=== PATIENT | female | born 1990 | race Caucasian/White ===

== ENCOUNTER 2016-11-08 20:09 | Inpatient (IN) | payer SELFPAY ==
[2016-11-08] MEDS ORDERED: NORMAL SALINE 1000 ML 2,000 ML IV ONE (20:30)
--- NOTE | 2016-11-08 20:35 | ER Document Report ---
ED Medical Screen (RME) - General Chief Complaint: High Blood Sugar Stated Complaint: SUGAR PROBLEMS Time seen by provider: 20:35 TRAVEL OUTSIDE OF THE [place] IN LAST 30 DAYS: No - Related Data Allergies/Adverse Reactions: amoxicillin [Amoxicillin] Allergy (Verified 09/06/16 17:33) Past Medical History - Social History Chew tobacco use (# tins/day): No Frequency of alcohol use: Occasional Drug Abuse: None - Past Medical History Cardiac Medical History: Reports: Hx Hypertension Denies: Hx Congestive Heart Failure, Hx DVT, Hx Heart Attack, Hx Pulmonary Embolism Pulmonary Medical History: Reports: Hx Asthma, Hx Bronchitis Neurological Medical History: Reports: Hx Migraine. Denies: Hx Seizures Endocrine Medical History: Reports: Hx Diabetes Mellitus Type 1, Hx Diabetes Mellitus Type 2. Denies: Hx Hyperthyroidism, Hx Hypothyroidism GI Medical History: Denies: Hx Cirrhosis, Hx Gastroesophageal Reflux Disease, Hx Hepatitis Musculoskeltal Medical History: Denies Hx Arthritis Psychiatric Medical History: Reports: Hx Bipolar Disorder, Hx Depression Infectious Medical History: Denies: Hx Hepatitis Past Surgical History: Reports: Hx Cholecystectomy, Hx Oral Surgery, Hx Tonsillectomy - Immunizations Immunizations up to date: Yes Hx Diphtheria, Pertussis, Tetanus Vaccination: Yes Physical Exam - Vital signs Vitals: Temp Pulse Resp BP Pulse Ox 98.4 F 124 H 26 H 127/90 H 98 11/08/16 20:31 11/08/16 20:31 11/08/16 20:31 11/08/16 20:31 11/08/16 20:31 Course - Vital Signs Vital signs: Temp Pulse Resp BP Pulse Ox 98.4 F 124 H 26 H 127/90 H 98 11/08/16 20:31 11/08/16 20:31 11/08/16 20:31 11/08/16 20:31 11/08/16 20:31
[2016-11-08] MEDS ORDERED: METOCLOPRAMIDE HCL INJ/PF 10 MG/2 ML SDV IV ONE (20:53)
--- NOTE | 2016-11-08 20:53 | ER Document Report ---
ED General - General Chief Complaint: High Blood Sugar Stated Complaint: SUGAR PROBLEMS Time seen by provider: 20:52 Mode of Arrival: Ambulatory Information source: Patient Notes: This is a 26-year-old female with a history of insulin requiring diabetes, hypothyroidism, hypertension and GERD. The patient presents to the emergency room with 4 days history of nausea, vomiting, dizziness, not tolerating fluids. The patient states she has a history of DKA and is concerned that she might be in DKA again today. TRAVEL OUTSIDE OF THE [place] IN LAST 30 DAYS: No - HPI Onset: Last week Onset/Duration: Gradual Quality of pain: No pain Severity: None Pain Level: Denies Associated symptoms: Diarrhea, Nausea, Vomiting. denies: Chills, Fever Exacerbated by: Denies Relieved by: Denies Similar symptoms previously: Yes Recently seen / treated by doctor: Yes - Related Data Allergies/Adverse Reactions: amoxicillin [Amoxicillin] Allergy (Verified 09/06/16 17:33) Past Medical History - General Information source: Patient - Social History Smoking Status: Current Every Day Smoker Cigarette use (# per day): Yes - half pack per day Chew tobacco use (# tins/day): No Frequency of alcohol use: Occasional Drug Abuse: None Lives with: Family Family History: DM Patient has suicidal ideation: No Patient has homicidal ideation: No - Past Medical History Cardiac Medical History: Reports: Hx Hypertension Denies: Hx Congestive Heart Failure, Hx DVT, Hx Heart Attack, Hx Pulmonary Embolism Pulmonary Medical History: Reports: Hx Asthma, Hx Bronchitis Neurological Medical History: Reports: Hx Migraine. Denies: Hx Seizures Endocrine Medical History: Reports: Hx Diabetes Mellitus Type 1, Hx Diabetes Mellitus Type 2. Denies: Hx Hyperthyroidism, Hx Hypothyroidism GI Medical History: Denies: Hx Cirrhosis, Hx Gastroesophageal Reflux Disease, Hx Hepatitis Musculoskeltal Medical History: Denies Hx Arthritis Psychiatric Medical History: Reports: Hx Bipolar Disorder, Hx Depression Infectious Medical History: Denies: Hx Hepatitis Past Surgical History: Reports: Hx Cholecystectomy, Hx Oral Surgery, Hx Tonsillectomy - Immunizations Immunizations up to date: Yes Hx Diphtheria, Pertussis, Tetanus Vaccination: Yes Review of Systems - Review of Systems Constitutional: Chills, Malaise, Weakness. denies: Fever EENT: No symptoms reported Cardiovascular: No symptoms reported Respiratory: No symptoms reported Gastrointestinal: See HPI Genitourinary: No symptoms reported Female Genitourinary: No symptoms reported Musculoskeletal: No symptoms reported Skin: No symptoms reported Hematologic/Lymphatic: No symptoms reported Neurological/Psychological: No symptoms reported Physical Exam - Vital signs Vitals: Temp Pulse Resp BP Pulse Ox 98.4 F 124 H 26 H 127/90 H 98 11/08/16 20:31 11/08/16 20:31 11/08/16 20:31 11/08/16 20:31 11/08/16 20:31 Notes: Physical exam: GENERAL: 26-year-old female, alert and oriented 3, appears dehydrated. HEAD: Atraumatic, normocephalic. EYES: Pupils equal round and reactive to light, extraocular movements intact, sclera anicteric, conjunctiva are normal. ENT: TMs normal, nares patent, oropharynx clear without exudates. Dry mucous membranes. NECK: Normal range of motion, supple without lymphadenopathy or JVD. LUNGS: Breath sounds clear to auscultation bilaterally and equal. No wheezes rales or rhonchi. HEART: Regular rate and rhythm without murmurs, rubs or gallops. ABDOMEN: Soft, nontender, hypoactive bowel sounds. No guarding, no rebound. No masses appreciated. EXTREMITIES: Normal range of motion, no pitting or edema. No clubbing or cyanosis. NEUROLOGICAL: Cranial nerves II through XII grossly intact. Normal speech, normal gait. PSYCH: Normal mood, normal affect. SKIN: Warm, Dry, normal turgor, no rashes or lesions noted. Course - Re-evaluation Re-evalutation: 11/09/16 01:53 Patient in DKA: IV insulin, IV fluids, IV Zosyn - Vital Signs Vital signs: Temp Pulse Resp BP Pulse Ox 98.4 F 124 H 26 H 127/90 H 98 11/08/16 20:31 11/08/16 20:31 11/08/16 20:31 11/08/16 20:31 11/08/16 20:31 - Laboratory Result Diagrams: 11/08/16 22:21 11/08/16 22:21 Laboratory results interpreted by me: 11/08/16 11/08/16 11/08/16 22:21 22:21 22:21 WBC 16.5 H RBC 5.62 H Hgb 16.2 H Hct 51.0 H MCHC 31.7 L RDW 14.8 H Seg Neutrophils % 86.5 H Lymphocytes % 7.7 L Absolute Neutrophils 14.3 H VBG pH 7.16 L* VBG pCO2 26.0 L VBG HCO3 9.1 L Potassium 5.2 H Carbon Dioxide 8 L* Anion Gap 30 H Glucose 485 H* POC Glucose Calcium 10.4 H Total Bilirubin 1.4 H Alkaline Phosphatase 148 H Albumin 5.2 H 11/09/16 00:48 WBC RBC Hgb Hct MCHC RDW Seg Neutrophils % Lymphocytes % Absolute Neutrophils VBG pH VBG pCO2 VBG HCO3 Potassium Carbon Dioxide Anion Gap Glucose POC Glucose 430 H* Calcium Total Bilirubin Alkaline Phosphatase Albumin - Diagnostic Test Radiology reviewed: Image reviewed, Reports reviewed - Chest x-ray shows no infiltrates Critical Care Note - Critical Care Note Total time excluding time spent on procedures (mins): 75 Discharge - Discharge Clinical Impression: DKA Condition: Serious Disposition: ADMITTED INPATIENT Admitting Provider: Hospitalist - Dr. Sutherland Unit Admitted: [facility]
[2016-11-08] MEDS ORDERED: DIPHENHYDRAMINE HCL 50 MG/ML VIAL IV ONE (20:58)
[2016-11-08] MEDS ORDERED: MAG HYDROX/AL HYDROX/SIMETH SUSP 30 ML UDCUP PO ONE (20:59)
[2016-11-08] MEDS ORDERED: LIDOCAINE 2% VISCOUS SOLN 20 ML UDCUP PO ONE (20:59)
[2016-11-08] MEDS ORDERED: FAMOTIDINE INJ/PF 20 MG/2 ML SDV IV ONE (20:59)
[2016-11-08 22:36] LABS: ABSOLUTE BASOPHILS # (AUTO) 0.1 10^3/uL (0.0-0.2); ABSOLUTE EOSINOPHILS # (AUTO) 0.1 10^3/uL (0.0-0.6); ABSOLUTE LYMPHOCYTES (AUTO) 1.3 10^3/uL (0.5-4.7); ABSOLUTE MONOCYTES (AUTO) 0.7 10^3/uL (0.1-1.4); ABSOLUTE NEUT (AUTO) 14.3 10^3/uL (1.7-8.2); BASOPHILS % (AUTO) 0.7 % (0-2); EOSINOPHILS % (AUTO) 0.6 % (0-6); HEMOGLOBIN 16.2 g/dL (12.0-15.5); HGB HCT DIFFERENCE -2.4; LYMPHOCYTES % (AUTO) 7.7 % (13-45); MEAN CORPUSCULAR HEMOGLOBIN 28.8 pg (27.0-33.4); MEAN CORPUSCULAR HGB CONC 31.7 g/dL (32.0-36.0); MEAN CORPUSCULAR VOLUME 91 fl (80-97); MONOCYTES % (AUTO) 4.5 % (3-13); RED BLOOD COUNT 5.62 10^6/uL (3.72-5.28); RED CELL DISTRIBUTION WIDTH 14.8 % (11.5-14.0); SEGMENTED NEUTROPHILS % (AUTO) 86.5 % (42-78); WHITE BLOOD COUNT 16.5 10^3/uL (4.0-10.5)
[2016-11-08 22:39] LABS: VENOUS BLOOD BASE EXCESS -17.7 mmol/L; VENOUS BLOOD HCO3 9.1 mmol/L (20-32)
[2016-11-08 22:43] LABS: VENOUS BLOOD PH 7.16 (7.30-7.42)
[2016-11-08 22:57] LABS: ALANINE AMINOTRANSFERASE 30 U/L (9-52); ALBUMIN 5.2 g/dL (3.5-5.0); ALKALINE PHOSPHATASE 148 U/L (38-126); ASPARTATE AMINO TRANSFERASE 16 U/L (14-36); BILIRUBIN,TOTAL 1.4 mg/dL (0.2-1.3); BLOOD UREA NITROGEN 11 mg/dL (7-20); CALCIUM 10.4 mg/dL (8.4-10.2); CHLORIDE 99 mmol/L (98-107); CREATININE RESULT 0.86 mg/dL (0.52-1.25); POTASSIUM 5.2 mmol/L (3.6-5.0); SODIUM 137.2 mmol/L (137-145); TOTAL PROTEIN 8.1 g/dL (6.3-8.2)
[2016-11-08 23:12] LABS: GLUCOSE 485 mg/dL (75-110)
[2016-11-08 23:13] LABS: CARBON DIOXIDE 8 mmol/L (22-30)
[2016-11-08 23:21] LABS: ANION GAP 30 (5-19)
[2016-11-08] MEDS ORDERED: DEXTROSE 40% GEL 15 GM TUBE PO PRN ×2 (23:43)
[2016-11-08] MEDS ORDERED: DEXTROSE 50%-WATER 25 GM/50 ML DISP.SYRIN IV PRN ×2 (23:43)
[2016-11-08] MEDS ORDERED: NORMAL SALINE 100 ML with INSULIN REGULAR, HUMAN 100 UNIT IV PRN ×2 (23:43)
[2016-11-08] MEDS ORDERED: GLUCAGON,HUMAN RECOMB 1 MG INJ IM PRN (23:43)
[2016-11-09] MEDS ORDERED: INSULIN REG, HUMAN 100 UNIT/ML 3 ML VIAL (PYX) ONE (00:34)
[2016-11-09] MEDS ORDERED: ONDANSETRON HCL INJ/PF 4 MG/2 ML SDV ONE (01:16)
[2016-11-09] MEDS ORDERED: ONDANSETRON HCL INJ/PF 4 MG/2 ML SDV IV ONE (01:30)
[2016-11-09] MEDS ORDERED: DEXTROSE 40% GEL 15 GM TUBE PO PRN ×2 (01:50)
[2016-11-09] MEDS ORDERED: NORMAL SALINE 100 ML with INSULIN REGULAR, HUMAN 100 UNIT IV PRN ×2 (01:50)
[2016-11-09] MEDS ORDERED: MAGNESIUM HYDROXIDE SUSP 30 ML UDCUP PO PRN (01:50)
[2016-11-09] MEDS ORDERED: ACETAMINOPHEN 325 MG TABLET PO PRN (01:50)
[2016-11-09] MEDS ORDERED: DEXTROSE 50%-WATER 25 GM/50 ML DISP.SYRIN IV PRN ×2 (01:50)
[2016-11-09] MEDS ORDERED: GLUCAGON,HUMAN RECOMB 1 MG INJ IM PRN (01:50)
[2016-11-09] MEDS ORDERED: ENALAPRILAT DIHYDRATE INJ/PF 1.25 MG/1 ML SDV IV PRN (02:37)
--- NOTE | 2016-11-09 02:46 | PDOC H&P ---
History of Present Illness Admission Date/PCP: 11/09/16 01:50 Patient complains of: Abdominal, pain nausea and hyperglycemia History of Present Illness: NED LOZANO is a 26 year old female with a past medical history of morbid obesity, noncompliance, tobacco, bipolar depression, insulin-dependent diabetes and recurrent DKA. He states she been her usual state of health until approximately 5 days ago noting uncontrolled blood sugars in the 600 range though denies taking action on these results. She otherwise denies acute illness noncompliance with medication or lifestyle. In the emergency room she complains of abdominal pain nausea and is found to have hyperglycemia severe diabetic ketoacidosis with a bicarbonate of 8 and an anion gap of 30 she started on insulin IV fluids and referred to the hospitalist for admission. Past Medical History Cardiac Medical History: Reports: Hypertension Denies: Congestive Heart Failure, DVT, Myocardial Infarction, Pulmonary Embolism Pulmonary Medical History: Reports: Asthma, Bronchitis Neurological Medical History: Reports: Migraine Denies: Seizures Endocrine Medical History: Reports: Diabetes Mellitus Type 1 Denies: Hyperthyroidism, Hypothyroidism GI Medical History: Denies: Cirrhosis, Gastroesophageal Reflux Disease, Hepatitis Musculoskeltal Medical History: Denies: Arthritis Psychiatric Medical History: Reports: Bipolar Disorder, Depression, Tobacco Dependency Past Surgical History Past Surgical History: Reports: Cholecystectomy, Tonsillectomy Social History Information Source: Patient Lives with: Family Smoking Status: Current Every Day Smoker Frequency of Alcohol Use: None Hx Recreational Drug Use: Yes Drugs: None, Other Hx Prescription Drug Abuse: Yes - Advance Directive Resuscitation Status: Full Code Family History Family History: DM Parental Family History Reviewed: Yes Children Family History Reviewed: Yes Sibling(s) Family History Reviewed.: Yes Medication/Allergy Home Medications: Gabapentin 300 mg PO BID 09/06/15 Insulin Glargine,Hum.rec.anlog [Lantus Insulin 100 Unit/mL] 40 unit SUBCUT Q12 09/06/15 Ondansetron [Zofran Odt 4 mg Tablet] 1 - 2 tab PO Q4HP PRN #10 tab.rapdis Tramadol HCl [Ultram] 50 mg PO Q8HP PRN #10 tablet 09/07/15 Pregabalin [Lyrica] 200 mg PO BID 12/11/15 Citalopram Hydrobromide [Celexa 40 mg Tablet] 1 tab PO DAILY 06/17/16 Hydroxyzine Pamoate [Vistaril 50 mg Capsule] 50 mg PO Q6HP PRN #30 capsule 06/17 Insulin Glargine,Hum.rec.anlog [Lantus Solostar] 50 unit SQ QHS 30 Days Insulin Lispro [Humalog] 15 unit SQ AC 30 Days 09/09/16 Levothyroxine Sodium [Synthroid 0.05 mg Tablet] 0.05 mg PO DAILY #30 tablet 08/15 Allergies/Adverse Reactions: amoxicillin [Amoxicillin] Allergy (Verified 09/06/16 17:33) Review of Systems Constitutional: PRESENT: fatigue. ABSENT: chills, fever(s), headache(s), night sweats, weakness, weight gain, weight loss Eyes: ABSENT: visual disturbances Ears: ABSENT: hearing changes Cardiovascular: ABSENT: chest pain, dyspnea on exertion, edema, orthropnea, palpitations Respiratory: ABSENT: cough, hemoptysis Gastrointestinal: PRESENT: bloating, constipation. ABSENT: abdominal pain, diarrhea, hematemesis, hematochezia, nausea, vomiting Genitourinary: ABSENT: dysuria, hematuria Musculoskeletal: ABSENT: joint swelling Integumentary: ABSENT: rash, wounds Neurological: ABSENT: abnormal gait, abnormal speech, confusion, dizziness, focal weakness, syncope Psychiatric: ABSENT: anxiety, depression, homidical ideation, suicidal ideation Endocrine: PRESENT: polydipsia, polyphagia, polyuria. ABSENT: cold intolerance , heat intolerance Hematologic/Lymphatic: ABSENT: easy bleeding, easy bruising Physical Exam Vital Signs: Temp Pulse Resp BP Pulse Ox 97.7 F 124 H 27 H 154/91 H 100 11/09/16 02:05 11/08/16 20:31 11/09/16 02:01 11/09/16 02:00 11/09/16 02:01 General appearance: PRESENT: mild distress, morbidly obese Head exam: PRESENT: atraumatic, normocephalic Eye exam: PRESENT: conjunctiva pink, EOMI, PERRLA. ABSENT: scleral icterus Ear exam: PRESENT: normal external ear exam Mouth exam: PRESENT: dry mucosa, neck supple. ABSENT: laceration, moist Teeth exam: PRESENT: dental caries. ABSENT: dental tenderness Neck exam: ABSENT: carotid bruit, JVD, lymphadenopathy, thyromegaly Respiratory exam: PRESENT: clear to auscultation hossein. ABSENT: rales, rhonchi, wheezes Cardiovascular exam: PRESENT: RRR. ABSENT: diastolic murmur, rubs, systolic murmur Pulses: PRESENT: normal dorsalis pedis pul Vascular exam: PRESENT: normal capillary refill GI/Abdominal exam: PRESENT: normal bowel sounds, soft. ABSENT: distended, guarding, mass, organolmegaly, rebound, tenderness Extremities exam: PRESENT: full ROM. ABSENT: calf tenderness, clubbing, pedal edema Neurological exam: PRESENT: alert, awake, oriented to person, oriented to place , oriented to time, oriented to situation, CN II-XII grossly intact. ABSENT: motor sensory deficit Psychiatric exam: PRESENT: depressed, flat affect, unusual affect Skin exam: PRESENT: dry, intact, warm. ABSENT: cyanosis, rash Results Impressions: Chest X-Ray 11/08/16 23:45 IMPRESSION: NO ACUTE RADIOGRAPHIC FINDING IN THE CHEST. Assessment & Plan - Diagnosis (1) DKA (diabetic ketoacidoses) Qualifiers: Diabetes mellitus type: type 1 Diabetes mellitus complication detail: without coma Qualified Code(s): E10.10 - Type 1 diabetes mellitus with ketoacidosis without coma Is this a current diagnosis for this admission?: YesPlan: Diabetic ketoacidosis patient has had some degree of polyuria polydipsia with nausea and uncontrolled hyperglycemia with supporting labs. Patient will receive IV fluids IV insulin serial chemistries every 6 hours for evaluation for electrolyte repletion. Continued evaluation for underlying cause if not found Patient will require diabetic education and consideration of mental health evaluation. (2) Chronic pain Is this a current diagnosis for this admission?: YesPlan: Minimizer wean off narcotics (3) Tobacco abuse Is this a current diagnosis for this admission?: YesPlan: Tobacco Dependence patient received tobacco cessation counseling and offered nicotine replacement options (4) Depression Qualifiers: Depression Type: unspecified Qualified Code(s): F32.9 - Major depressive disorder, single episode, unspecified Is this a current diagnosis for this admission?: YesPlan: Continue outpatient regiment with outpatient until health follow-up - Time Time Spent: 50 to 70 Minutes
[2016-11-09 03:08] LABS: BLOOD UREA NITROGEN 11 mg/dL (7-20); CALCIUM 8.7 mg/dL (8.4-10.2); CREATININE RESULT 0.85 mg/dL (0.52-1.25); GLUCOSE 338 mg/dL (75-110)
[2016-11-09 03:09] LABS: CHLORIDE 106 mmol/L (98-107)
[2016-11-09 03:20] LABS: SODIUM 140.8 mmol/L (137-145)
[2016-11-09 03:31] LABS: ANION GAP 28 (5-19)
[2016-11-09 03:34] LABS: CARBON DIOXIDE 7 mmol/L (22-30)
[2016-11-09] MEDS: HEPARIN SOD (PORCINE) 5,000 UNIT/ML 1 ML SYRINGE SUBCUT SCH ×3 (05:01→21:46)
[2016-11-09] MEDS: ONDANSETRON HCL INJ/PF 4 MG/2 ML SDV IV SCH ×3 (05:05→17:31)
[2016-11-09 06:35] LABS: BLOOD UREA NITROGEN 7 mg/dL (7-20); CALCIUM 8.5 mg/dL (8.4-10.2); CHLORIDE 109 mmol/L (98-107); CREATININE RESULT 0.76 mg/dL (0.52-1.25); GLUCOSE 113 mg/dL (75-110); POTASSIUM 4.7 mmol/L (3.6-5.0); SODIUM 138.1 mmol/L (137-145)
[2016-11-09] MEDS ORDERED: POTASSI CL 20 MEQ/D5-1/2NS 1L 1,000 ML IV ONE (06:45)
[2016-11-09] MEDS: POTASSI CL 20 MEQ/D5-1/2NS 1L 1,000 ML IV PRN ×3 (06:49→19:43)
[2016-11-09 06:59] LABS: CARBON DIOXIDE < 5 mmol/L (22-30)
[2016-11-09] MEDS: DOCUSATE SODIUM 100 MG CAPSULE PO SCH ×2 (09:04→17:32)
[2016-11-09] MEDS: CITALOPRAM HYDROBROMIDE 20 MG TABLET PO SCH (09:05)
[2016-11-09] MEDS: LEVOTHYROXINE SODIUM 0.05 MG TABLET PO SCH (09:05)
[2016-11-09] MEDS ORDERED: (PENDING PHARMACY ID) (Citalopram Hydrobromide [Celexa 40 Mg Tablet] 1 TAB) PO SCH (10:00)
--- NOTE | 2016-11-09 10:18 | PDOC PROGRESS REPORT ---
Subjective Progress Note for:: 11/09/16 Subjective:: Patient states she still feels poorly. She is still having some nausea and has no appetite. Patient denies fever, chills, headache, new focal weakness, chest pain, shortness of breath, abdominal pain, diarrhea, constipation. Physical Exam Vital Signs: Temp Pulse Resp BP Pulse Ox 98.2 F 105 H 16 117/65 100 11/09/16 07:11 11/09/16 07:11 11/09/16 07:11 11/09/16 07:11 11/09/16 07:11 Intake & Output 11/08/16 11/09/16 11/10/16 06:59 06:59 06:59 Intake Total 37 Output Total 600 Balance -563 Weight 110 kg GENERAL: No acute distress, ill appearing HEENT: Conjunctiva clear, nonicteric, moist mucous membranes, no JVD, midline trachea RESPIRATORY: Clear to auscultation bilaterally, no wheezes, no rhonchi CARDIAC: Regular rate and rhythm, no murmurs/gallops/rubs ABDOMEN: Soft, nondistended, nontender, positive bowel sounds, no rebound, no guarding EXTREMETIES: No edema, cyanosis, clubbing NEUROLOGIC: Alert, oriented to person/place/time, CN's grossly intact, no focal deficits SKIN: No rash, wounds PSYCH: Normal mood, normal affect Results Laboratory Results: 11/09/16 11/09/16 02:33 06:00 Sodium 140.8 138.1 Potassium 5.0 4.7 Chloride 106 109 H Carbon Dioxide 7 L* < 5 L* Anion Gap 28 H MODELING DIRECTOR BUN 11 7 Creatinine 0.85 0.76 Est GFR ( Amer) > 60 > 60 Est GFR (Non-Af Amer) > 60 > 60 Glucose 338 H 113 H Calcium 8.7 8.5 Impressions: Chest X-Ray 11/08/16 23:45 IMPRESSION: NO ACUTE RADIOGRAPHIC FINDING IN THE CHEST. Assessment & Plan - Diagnosis (1) DKA (diabetic ketoacidoses) Qualifiers: Diabetes mellitus type: type 1 Diabetes mellitus complication detail: without coma Qualified Code(s): E10.10 - Type 1 diabetes mellitus with ketoacidosis without coma Is this a current diagnosis for this admission?: YesPlan: Continue insulin drip, IV fluids, nothing by mouth status. Continue every hour Accu-Cheks and every 4 hour BMP. (2) Hypothyroid Is this a current diagnosis for this admission?: YesPlan: Continue Synthroid. (3) Bipolar disorder Qualifiers: Active/Remission status: remission status unspecified Qualified Code (s): F31.9 - Bipolar disorder, unspecified Is this a current diagnosis for this admission?: YesPlan: Continue Lyrica, Celexa. (4) Tobacco abuse Is this a current diagnosis for this admission?: Yes - Time Time Spent with patient: 35 or more minutes Anticipated discharge: Home Within: within 72 hours
[2016-11-09 11:28] LABS: ANION GAP 17 (5-19); BLOOD UREA NITROGEN 5 mg/dL (7-20); CALCIUM 9.2 mg/dL (8.4-10.2); CHLORIDE 111 mmol/L (98-107); CREATININE RESULT 0.62 mg/dL (0.52-1.25); GLUCOSE 117 mg/dL (75-110); POTASSIUM 4.5 mmol/L (3.6-5.0); SODIUM 138.3 mmol/L (137-145)
[2016-11-09 11:41] LABS: CARBON DIOXIDE 10 mmol/L (22-30)
[2016-11-09 15:21] LABS: ANION GAP 14 (5-19); BLOOD UREA NITROGEN 5 mg/dL (7-20); CALCIUM 9.1 mg/dL (8.4-10.2); CARBON DIOXIDE 12 mmol/L (22-30); CHLORIDE 111 mmol/L (98-107); CREATININE RESULT 0.54 mg/dL (0.52-1.25); GLUCOSE 91 mg/dL (75-110); POTASSIUM 4.4 mmol/L (3.6-5.0); SODIUM 137.4 mmol/L (137-145)
[2016-11-09] MEDS: PREGABALIN 100 MG CAPSULE PO SCH (17:31)
[2016-11-09] MEDS ORDERED: (PENDING PHARMACY ID) (Pregabalin [Lyrica] 200 MG) PO SCH (18:00)
[2016-11-09 18:41] LABS: ANION GAP 14 (5-19); BLOOD UREA NITROGEN 5 mg/dL (7-20); CARBON DIOXIDE 12 mmol/L (22-30); CHLORIDE 111 mmol/L (98-107); CREATININE RESULT 0.53 mg/dL (0.52-1.25); GLUCOSE 135 mg/dL (75-110); POTASSIUM 4.2 mmol/L (3.6-5.0); SODIUM 136.8 mmol/L (137-145)
[2016-11-09 22:53] LABS: ANION GAP 15 (5-19); BLOOD UREA NITROGEN 4 mg/dL (7-20); CALCIUM 8.9 mg/dL (8.4-10.2); CARBON DIOXIDE 13 mmol/L (22-30); CHLORIDE 110 mmol/L (98-107); CREATININE RESULT 0.55 mg/dL (0.52-1.25); GLUCOSE 222 mg/dL (75-110); POTASSIUM 3.7 mmol/L (3.6-5.0); SODIUM 137.9 mmol/L (137-145)
[2016-11-10] MEDS: ONDANSETRON HCL INJ/PF 4 MG/2 ML SDV IV SCH ×4 (00:06→17:28)
[2016-11-10] MEDS ORDERED: POTASSI CL 20 MEQ/50 ML RIDER 20 MEQ/50 ML RTUPB IV ONE (00:26)
[2016-11-10] MEDS ORDERED: RINGERS SOLUTION,LACTATED 1,000 ML IV ONE (00:26)
[2016-11-10] MEDS: POTASSI CL 20 MEQ/D5-1/2NS 1L 1,000 ML IV PRN ×2 (02:22→08:09)
[2016-11-10] MEDS ORDERED: NICOTINE 21 MG/24 HR PATCH.TD24 TD PRN (02:25)
[2016-11-10 02:54] LABS: ANION GAP 10 (5-19); BLOOD UREA NITROGEN 7 mg/dL (7-20); CALCIUM 8.2 mg/dL (8.4-10.2); CARBON DIOXIDE 17 mmol/L (22-30); CHLORIDE 111 mmol/L (98-107); CREATININE RESULT 0.51 mg/dL (0.52-1.25); GLUCOSE 205 mg/dL (75-110); POTASSIUM 3.9 mmol/L (3.6-5.0); SODIUM 138.3 mmol/L (137-145)
[2016-11-10] MEDS: HEPARIN SOD (PORCINE) 5,000 UNIT/ML 1 ML SYRINGE SUBCUT SCH ×3 (05:37→22:18)
[2016-11-10 07:48] LABS: ANION GAP 8 (5-19); BLOOD UREA NITROGEN 6 mg/dL (7-20); CALCIUM 8.4 mg/dL (8.4-10.2); CARBON DIOXIDE 19 mmol/L (22-30); CHLORIDE 113 mmol/L (98-107); CREATININE RESULT 0.46 mg/dL (0.52-1.25); GLUCOSE 91 mg/dL (75-110); POTASSIUM 3.8 mmol/L (3.6-5.0)
[2016-11-10] MEDS ORDERED: DEXTROSE 50%-WATER 25 GM/50 ML DISP.SYRIN IV PRN ×2 (08:26)
[2016-11-10] MEDS ORDERED: GLUCAGON,HUMAN RECOMB 1 MG INJ IM PRN (08:26)
[2016-11-10] MEDS ORDERED: DEXTROSE 40% GEL 15 GM TUBE PO PRN ×2 (08:26)
[2016-11-10 08:30] LABS: ABSOLUTE BASOPHILS # (AUTO) 0.1 10^3/uL (0.0-0.2); ABSOLUTE EOSINOPHILS # (AUTO) 0.2 10^3/uL (0.0-0.6); ABSOLUTE LYMPHOCYTES (AUTO) 2.5 10^3/uL (0.5-4.7); ABSOLUTE MONOCYTES (AUTO) 0.5 10^3/uL (0.1-1.4); ABSOLUTE NEUT (AUTO) 2.5 10^3/uL (1.7-8.2); BASOPHILS % (AUTO) 1.4 % (0-2); EOSINOPHILS % (AUTO) 3.2 % (0-6); HEMATOCRIT 38.2 % (36.0-47.0); HGB HCT DIFFERENCE 0.2; LYMPHOCYTES % (AUTO) 43.2 % (13-45); MEAN CORPUSCULAR HEMOGLOBIN 29.4 pg (27.0-33.4); MEAN CORPUSCULAR HGB CONC 33.5 g/dL (32.0-36.0); MEAN CORPUSCULAR VOLUME 88 fl (80-97); MONOCYTES % (AUTO) 8.6 % (3-13); RED BLOOD COUNT 4.35 10^6/uL (3.72-5.28); RED CELL DISTRIBUTION WIDTH 14.6 % (11.5-14.0); SEGMENTED NEUTROPHILS % (AUTO) 43.6 % (42-78); WHITE BLOOD COUNT 5.7 10^3/uL (4.0-10.5)
[2016-11-10] MEDS ORDERED: INSULIN GLARGINE,HUM.REC.ANLOG 300 UNIT/3 ML INSULN.PEN SUBCUT SCH (08:30)
[2016-11-10 08:33] LABS: HEMOGLOBIN 12.8 g/dL (12.0-15.5)
[2016-11-10] MEDS ORDERED: INSULIN GLARGINE,HUM.REC.ANLOG 1,000 UNIT/10 ML UNIT SUBCUT ONE (09:00)
[2016-11-10] MEDS: PREGABALIN 100 MG CAPSULE PO SCH ×2 (09:07→17:28)
[2016-11-10] MEDS: LEVOTHYROXINE SODIUM 0.05 MG TABLET PO SCH (09:08)
[2016-11-10] MEDS: CITALOPRAM HYDROBROMIDE 20 MG TABLET PO SCH (09:08)
[2016-11-10] MEDS: DOCUSATE SODIUM 100 MG CAPSULE PO SCH ×2 (09:08→17:28)
[2016-11-10] MEDS ORDERED: IBUPROFEN 800 MG TABLET PO PRN (10:34)
--- NOTE | 2016-11-10 10:38 | PDOC PROGRESS REPORT ---
Subjective Progress Note for:: 11/10/16 Subjective:: Patient states she feels generally better. She is requesting Motrin for headache and a cup of coffee. Patient denies fever, chills, headache, new focal weakness, chest pain, shortness of breath, abdominal pain, diarrhea, constipation. Physical Exam Vital Signs: Temp Pulse Resp BP Pulse Ox 97.3 F 65 19 111/69 100 11/10/16 03:39 11/10/16 08:42 11/10/16 07:19 11/10/16 07:19 11/10/16 07:19 Intake & Output 11/09/16 11/10/16 11/11/16 06:59 06:59 06:59 Intake Total 37 1503 Output Total 600 1300 Balance -563 203 Weight 110 kg 111.9 kg GENERAL: No acute distress HEENT: Conjunctiva clear, nonicteric, moist mucous membranes, no JVD, midline trachea RESPIRATORY: Clear to auscultation bilaterally, no wheezes, no rhonchi CARDIAC: Regular rate and rhythm, no murmurs/gallops/rubs ABDOMEN: Soft, nondistended, nontender, positive bowel sounds, no rebound, no guarding EXTREMETIES: No edema, cyanosis, clubbing NEUROLOGIC: Alert, oriented to person/place/time, CN's grossly intact, no focal deficits SKIN: No rash, wounds PSYCH: Normal mood, normal affect Results Laboratory Results: 11/10/16 04:32 11/09/16 11/09/16 11/09/16 09:43 11:06 14:47 WBC RBC Hgb Hct MCV MCH MCHC RDW Plt Count Seg Neutrophils % Lymphocytes % Monocytes % Eosinophils % Basophils % Absolute Neutrophils Absolute Lymphocytes Absolute Monocytes Absolute Eosinophils Absolute Basophils Sodium Cancelled 138.3 137.4 Potassium Cancelled 4.5 4.4 Chloride Cancelled 111 H 111 H Carbon Dioxide Cancelled 10 L* 12 L Anion Gap Cancelled 17 14 BUN Cancelled 5 L 5 L Creatinine Cancelled 0.62 0.54 Est GFR ( Amer) Cancelled > 60 > 60 Est GFR (Non-Af Amer) Cancelled > 60 > 60 Glucose Cancelled 117 H 91 Calcium Cancelled 9.2 9.1 11/09/16 11/09/16 11/10/16 18:15 22:25 01:55 WBC RBC Hgb Hct MCV MCH MCHC RDW Plt Count Seg Neutrophils % Lymphocytes % Monocytes % Eosinophils % Basophils % Absolute Neutrophils Absolute Lymphocytes Absolute Monocytes Absolute Eosinophils Absolute Basophils Sodium 136.8 L 137.9 138.3 Potassium 4.2 3.7 3.9 Chloride 111 H 110 H 111 H Carbon Dioxide 12 L 13 L 17 L Anion Gap 14 15 10 BUN 5 L 4 L 7 Creatinine 0.53 0.55 0.51 L Est GFR ( Amer) > 60 > 60 > 60 Est GFR (Non-Af Amer) > 60 > 60 > 60 Glucose 135 H 222 H 205 H Calcium 9.0 8.9 8.2 L 11/10/16 11/10/16 04:32 04:32 WBC 5.7 RBC 4.35 Hgb 12.8 D Hct 38.2 MCV 88 MCH 29.4 MCHC 33.5 RDW 14.6 H Plt Count 212 Seg Neutrophils % 43.6 Lymphocytes % 43.2 Monocytes % 8.6 Eosinophils % 3.2 Basophils % 1.4 Absolute Neutrophils 2.5 Absolute Lymphocytes 2.5 Absolute Monocytes 0.5 Absolute Eosinophils 0.2 Absolute Basophils 0.1 Sodium 140.0 Potassium 3.8 Chloride 113 H Carbon Dioxide 19 L Anion Gap 8 BUN 6 L Creatinine 0.46 L Est GFR ( Amer) > 60 Est GFR (Non-Af Amer) > 60 Glucose 91 Calcium 8.4 Impressions: Chest X-Ray 11/08/16 23:45 IMPRESSION: NO ACUTE RADIOGRAPHIC FINDING IN THE CHEST. Assessment & Plan - Diagnosis (1) DKA (diabetic ketoacidoses) Qualifiers: Diabetes mellitus type: type 1 Diabetes mellitus complication detail: without coma Qualified Code(s): E10.10 - Type 1 diabetes mellitus with ketoacidosis without coma Is this a current diagnosis for this admission?: YesPlan: DKA corrected. Discontinue insulin drip. Start Lantus 50 units twice daily. Continue sliding scale insulin. Start diabetic diet. Patient admits to being noncompliant with outpatient regimen secondary to financial issues and lack of insurance. She has recently been seen at the [facility]. She states she has been denied Medicaid but plans on reapplying. (2) Hypothyroid Is this a current diagnosis for this admission?: YesPlan: Continue Synthroid. (3) Bipolar disorder Qualifiers: Active/Remission status: remission status unspecified Qualified Code (s): F31.9 - Bipolar disorder, unspecified Is this a current diagnosis for this admission?: YesPlan: Continue Lyrica, Celexa. (4) Tobacco abuse Is this a current diagnosis for this admission?: YesPlan: Continue nicotinic patch. Counseled on smoking cessation. I have advised that she could use money she spends on cigarettes to purchase insulin. - Time Time Spent with patient: 35 or more minutes Anticipated discharge: Home Within: within 24 hours
[2016-11-10 10:52] LABS: ANION GAP 12 (5-19); BLOOD UREA NITROGEN 5 mg/dL (7-20); CALCIUM 8.4 mg/dL (8.4-10.2); CARBON DIOXIDE 17 mmol/L (22-30); CHLORIDE 111 mmol/L (98-107); CREATININE RESULT 0.48 mg/dL (0.52-1.25); GLUCOSE 122 mg/dL (75-110); POTASSIUM 4.1 mmol/L (3.6-5.0); SODIUM 139.8 mmol/L (137-145)
[2016-11-10] MEDS: INSULIN LISPRO 100 UNIT/ML 3 ML VIAL SUBCUT PRN ×3 (11:29→22:18)
--- NOTE | 2016-11-10 14:09 | Physician Advisory Note ---
Physician Advisor ProgressNote .: [facility], I have reviewed the medical record for this patient. Physician Advisor Statement: Nice documentation overall. Even caught the dx obesity by including it in general appearance on H&P. Possible documentation opportunities if attending agrees: 1. "SIRS, present on adm, due to DKA" - WBC 16.5, HR 124, RR26 r.e. SIRS: Points to remember now: - In ICD-10, sepsis is coded separately from SIRS, so must specify 1 or the other. - If process is due to non-infectious cause, SIRS, present on admission, due to ____ can be documented & coded. r.e. sepsis: If there is suspected infection as cause, & pt is clearly sick, then sepsis can be documented & coded. - If no (+) cx, must document despite neg cxs, or coders are required to query for this. - If (+) cx, must document causative organism & any abx-resistances. Thx! CK
[2016-11-10] MEDS: INSULIN GLARGINE,HUM.REC.ANLOG 1,000 UNIT/10 ML UNIT SUBCUT SCH (17:26)
[2016-11-11] MEDS: ONDANSETRON HCL INJ/PF 4 MG/2 ML SDV IV SCH ×3 (00:41→11:19)
[2016-11-11 05:13] LABS: ABSOLUTE EOSINOPHILS # (AUTO) 0.2 10^3/uL (0.0-0.6); ABSOLUTE LYMPHOCYTES (AUTO) 1.6 10^3/uL (0.5-4.7); ABSOLUTE MONOCYTES (AUTO) 0.4 10^3/uL (0.1-1.4); ABSOLUTE NEUT (AUTO) 3.3 10^3/uL (1.7-8.2); BASOPHILS % (AUTO) 0.5 % (0-2); EOSINOPHILS % (AUTO) 4.4 % (0-6); HEMATOCRIT 39.5 % (36.0-47.0); HEMOGLOBIN 13.6 g/dL (12.0-15.5); HGB HCT DIFFERENCE 1.3; LYMPHOCYTES % (AUTO) 28.9 % (13-45); MEAN CORPUSCULAR HEMOGLOBIN 29.7 pg (27.0-33.4); MEAN CORPUSCULAR HGB CONC 34.4 g/dL (32.0-36.0); MEAN CORPUSCULAR VOLUME 86 fl (80-97); MONOCYTES % (AUTO) 7.5 % (3-13); RED BLOOD COUNT 4.59 10^6/uL (3.72-5.28); RED CELL DISTRIBUTION WIDTH 14.7 % (11.5-14.0); SEGMENTED NEUTROPHILS % (AUTO) 58.7 % (42-78); WHITE BLOOD COUNT 5.6 10^3/uL (4.0-10.5)
[2016-11-11 05:29] LABS: ANION GAP 10 (5-19); BLOOD UREA NITROGEN 10 mg/dL (7-20); CALCIUM 8.9 mg/dL (8.4-10.2); CARBON DIOXIDE 24 mmol/L (22-30); CHLORIDE 106 mmol/L (98-107); CREATININE RESULT 0.56 mg/dL (0.52-1.25); GLUCOSE 166 mg/dL (75-110); POTASSIUM 3.6 mmol/L (3.6-5.0); SODIUM 139.9 mmol/L (137-145)
[2016-11-11] MEDS: HEPARIN SOD (PORCINE) 5,000 UNIT/ML 1 ML SYRINGE SUBCUT SCH (06:27)
[2016-11-11] MEDS: INSULIN LISPRO 100 UNIT/ML 3 ML VIAL SUBCUT PRN ×2 (07:56→11:18)
[2016-11-11] MEDS: INSULIN GLARGINE,HUM.REC.ANLOG 1,000 UNIT/10 ML UNIT SUBCUT SCH (09:06)
[2016-11-11] MEDS: DOCUSATE SODIUM 100 MG CAPSULE PO SCH (09:08)
[2016-11-11] MEDS: CITALOPRAM HYDROBROMIDE 20 MG TABLET PO SCH (09:08)
[2016-11-11] MEDS: LEVOTHYROXINE SODIUM 0.05 MG TABLET PO SCH (09:08)
[2016-11-11] MEDS: PREGABALIN 100 MG CAPSULE PO SCH (09:08)
--- NOTE | 2016-11-11 11:17 | PDOC DISCHARGE SUMMARY ---
General - Admit/Disc Date/PCP Admission Date/Primary Care Provider: 11/09/16 01:50 [facility] Discharge Date: 11/11/16 - Discharge Diagnosis (1) DKA (diabetic ketoacidoses) Is this a current diagnosis for this admission?: Yes (2) Hypothyroid Is this a current diagnosis for this admission?: Yes (3) Bipolar disorder Is this a current diagnosis for this admission?: Yes (4) Tobacco abuse Is this a current diagnosis for this admission?: Yes (5) Autonomic neuropathy associated with type 1 diabetes mellitus Is this a current diagnosis for this admission?: Yes - Additional Information Resuscitation Status: Full Code Discharge Diet: Diabetic Discharge Activity: Activity As Tolerated Home Medications: Gabapentin 300 mg PO BID 09/06/15 Insulin Glargine,Hum.rec.anlog [Lantus Insulin 100 Unit/mL] 40 unit SUBCUT Q12 09/06/15 Ondansetron [Zofran Odt 4 mg Tablet] 1 - 2 tab PO Q4HP PRN #10 tab.rapdis Tramadol HCl [Ultram] 50 mg PO Q8HP PRN #10 tablet 09/07/15 Lisinopril 10 mg PO DAILY 11/09/16 Citalopram Hydrobromide [Celexa 40 mg Tablet] 40 mg PO DAILY #30 tablet Gabapentin [Neurontin 300 mg Capsule] 300 mg PO BID #60 capsule 11/11/16 Insulin Aspart [Novolog Flexpen] 0 unit SUBCUT .SLD SCALE #1 pen 11/11/16 Insulin Glargine,Hum.rec.anlog [Lantus Solostar] 50 unit SQ BID #1 syr 11/11/16 Levothyroxine Sodium [Synthroid 0.05 mg Tablet] 0.05 mg PO DAILY #30 tablet 10/16 History of Present Illness Patient complains of: Nausea vomiting History of Present Illness: NED LOZANO is a 26 year old female with type I diabetes and noncompliance with medication regimen presents with nausea and vomiting. She states that she has had DKA 8 times in the past. She states that she has not been taking her Lantus secondary to financial issues. She also states that she continues to smoke however. Hospital Course Hospital Course: Patient was admitted for DKA. She was treated with insulin drip protocol until DKA corrected. She was converted back to Lantus regimen. She is counseled on compliance with her outpatient diabetes regimen. She states that she cannot afford the medication. I advised her to discontinue smoking and use the financial resources to purchase medication instead of cigarettes. Patient is stable at time of discharge and will need to follow-up at [facility]. Patient has neuropathy associated with diabetes. She states that Lyrica was too expensive and request to be placed back on Neurontin. She was prescribed Neurontin at time of discharge. Physical Exam Vital Signs: Temp Pulse Resp BP Pulse Ox 98.4 F 62 20 109/71 100 11/11/16 07:18 11/11/16 08:16 11/11/16 07:18 11/11/16 07:18 11/11/16 07:18 Intake & Output 11/10/16 11/11/16 11/12/16 06:59 06:59 06:59 Intake Total 1503 1641 Output Total 1300 100 Balance 203 1541 Weight 111.9 kg 109.5 kg GENERAL: No acute distress HEENT: Conjunctiva clear, nonicteric, moist mucous membranes, no JVD, midline trachea RESPIRATORY: Clear to auscultation bilaterally, no wheezes, no rhonchi CARDIAC: Regular rate and rhythm, no murmurs/gallops/rubs ABDOMEN: Soft, nondistended, nontender, positive bowel sounds, no rebound, no guarding EXTREMETIES: No edema, cyanosis, clubbing NEUROLOGIC: Alert, oriented to person/place/time, CN's grossly intact, no focal deficits SKIN: No rash, wounds PSYCH: Normal mood, normal affect Results Laboratory Results: 11/11/16 04:46 11/11/16 04:46 11/11/16 11/11/16 04:46 04:46 WBC 5.6 RBC 4.59 Hgb 13.6 Hct 39.5 MCV 86 MCH 29.7 MCHC 34.4 RDW 14.7 H Plt Count 200 Seg Neutrophils % 58.7 Lymphocytes % 28.9 Monocytes % 7.5 Eosinophils % 4.4 Basophils % 0.5 Absolute Neutrophils 3.3 Absolute Lymphocytes 1.6 Absolute Monocytes 0.4 Absolute Eosinophils 0.2 Absolute Basophils 0.0 Sodium 139.9 Potassium 3.6 Chloride 106 Carbon Dioxide 24 Anion Gap 10 BUN 10 Creatinine 0.56 Est GFR ( Amer) > 60 Est GFR (Non-Af Amer) > 60 Glucose 166 H Calcium 8.9 11/11/16 04:46 Hemoglobin A1c % 9.6 H Impressions: Chest X-Ray 11/08/16 23:45 IMPRESSION: NO ACUTE RADIOGRAPHIC FINDING IN THE CHEST. Qualifiers PATEINT BEING DISCHARGED WITH ANY OF THE FOLLOWING DIAGNOSIS?: No Plan Discharge Plan: [facility]. Discontinue smoking. Take all medications as prescribed. Time Spent: Less than 30 Minutes
[2016-11-11] MEDS ORDERED: INFLUENZA ADLT QUAD (36MOS+) 2016-17 VAC 0.5 ML SYR IM PRN (11:50)
[2016-11-11 12:23] VITALS: BP 122/58
== END 2016-11-11 12:45 | disposition home or self-care (01) | DRG 639 ==
LOC: ER 20:09 → UNDOADMIN 11-09 01:14 → EH 11-09 01:14 → 3W 11-09 02:56
PROVIDERS: ADMIT Internal Medicine; ATTEND Internal Medicine
PROC: 3E0234Z Introduction of Serum, Toxoid and Vaccine into Muscle, Percutaneous Approach (ICD-10-PCS; principal; 2016-11-11)
DX: E10.10 Type 1 diabetes mellitus with ketoacidosis without coma (principal); E03.9 Hypothyroidism, unspecified; E10.43 Type 1 diabetes mellitus with diabetic autonomic (poly)neuropathy; F31.9 Bipolar disorder, unspecified; F17.210 Nicotine dependence, cigarettes, uncomplicated; E66.01 Morbid (severe) obesity due to excess calories; Z68.39 Body mass index [BMI] 39.0-39.9, adult; I10 Essential (primary) hypertension; J45.909 Unspecified asthma, uncomplicated; G43.909 Migraine, unspecified, not intractable, without status migrainosus; K21.9 Gastro-esophageal reflux disease without esophagitis; Z23 Encounter for immunization; Z90.49 Acquired absence of other specified parts of digestive tract; Z79.899 Other long term (current) drug therapy; Z79.4 Long term (current) use of insulin; Z59.9 Problem related to housing and economic circumstances, unspecified; Z88.1 Allergy status to other antibiotic agents; Z91.14 Patient's other noncompliance with medication regimen; Z83.3 Family history of diabetes mellitus
CPT/HCPCS: 36415; 71010; 80048; 80053; 82010; 82803; 82962; 83036; 84702; 85025; 90686; 96361; 96374; 96375; 99291; 99292; J1200; J1644; J1815; J2405; J2765; J3480; J3490; J7030; J7120; S0028

== ENCOUNTER → 2017-03-14 | Outpatient (CLI) | payer OTHER ==
[2017-03-14 10:21] LABS: ABSOLUTE BASOPHILS # (AUTO) 0.1 10^3/uL (0.0-0.2); ABSOLUTE EOSINOPHILS # (AUTO) 0.3 10^3/uL (0.0-0.6); ABSOLUTE LYMPHOCYTES (AUTO) 1.5 10^3/uL (0.5-4.7); ABSOLUTE MONOCYTES (AUTO) 0.6 10^3/uL (0.1-1.4); ABSOLUTE NEUT (AUTO) 8.7 10^3/uL (1.7-8.2); BASOPHILS % (AUTO) 0.8 % (0-2); EOSINOPHILS % (AUTO) 2.6 % (0-6); HEMATOCRIT 42.7 % (36.0-47.0); HEMOGLOBIN 14.3 g/dL (12.0-15.5); HGB HCT DIFFERENCE 0.2; LYMPHOCYTES % (AUTO) 13.7 % (13-45); MEAN CORPUSCULAR HEMOGLOBIN 29.2 pg (27.0-33.4); MEAN CORPUSCULAR HGB CONC 33.5 g/dL (32.0-36.0); MEAN CORPUSCULAR VOLUME 87 fl (80-97); MONOCYTES % (AUTO) 5.5 % (3-13); RED BLOOD COUNT 4.88 10^6/uL (3.72-5.28); RED CELL DISTRIBUTION WIDTH 15.2 % (11.5-14.0); SEGMENTED NEUTROPHILS % (AUTO) 77.4 % (42-78); WHITE BLOOD COUNT 11.3 10^3/uL (4.0-10.5)
[2017-03-14 10:43] LABS: ALANINE AMINOTRANSFERASE 38 U/L (9-52); ALBUMIN 3.8 g/dL (3.5-5.0); ALKALINE PHOSPHATASE 97 U/L (38-126); ANION GAP 10 (5-19); ASPARTATE AMINO TRANSFERASE 19 U/L (14-36); BILIRUBIN,DIRECT 0.3 mg/dL (0.0-0.4); BILIRUBIN,TOTAL 0.5 mg/dL (0.2-1.3); BLOOD UREA NITROGEN 13 mg/dL (7-20); CALCIUM 9.5 mg/dL (8.4-10.2); CARBON DIOXIDE 23 mmol/L (22-30); CHLORIDE 106 mmol/L (98-107); CHOLESTEROL 151.48 mg/dL (0-200); CREATININE RESULT 0.66 mg/dL (0.52-1.25); Direct HDL 42 mg/dL (>40); GLUCOSE 156 mg/dL (75-110); POTASSIUM 5.7 mmol/L (3.6-5.0); SODIUM 138.5 mmol/L (137-145); TOTAL PROTEIN 6.5 g/dL (6.3-8.2); TRIGLYCERIDES 75 mg/dL (<150)
[2017-03-14 10:54] LABS: DIRECT LDL 92 mg/dL (<100)
== END ==
LOC: CCC 09:19
DX: Z00.00 Encounter for general adult medical examination without abnormal findings (principal)
CPT/HCPCS: 36415; 80053; 80061; 83036; 84443; 85025

== ENCOUNTER 2017-04-15 13:55 | Emergency (ER) | payer SELFPAY ==
[2017-04-15] MEDS ORDERED: FAMOTIDINE INJ/PF 20 MG/2 ML SDV IV ONE (14:50)
[2017-04-15] MEDS ORDERED: ONDANSETRON HCL INJ/PF 4 MG/2 ML SDV IV ONE (14:50)
--- NOTE | 2017-04-15 14:52 | ER Document Report ---
ED Medical Screen (RME) - General Chief Complaint: High Blood Sugar Stated Complaint: VOMITING,DIZZY,SHORTNESS OF BREATH Time Seen by Provider: 04/15/17 14:45 Mode of Arrival: Ambulatory Information source: Patient TRAVEL OUTSIDE OF THE [place] IN LAST 30 DAYS: No - HPI Patient complains to provider of: High blood sugar, nausea and vomiting Associated Symptoms: Nausea, Vomiting Notes: 04/15/17 14:51 Patient is a 27-year-old female with a history of diabetes who was recently incarcerated for 30 days related to a DUI, she states while in care home she did not get her regular diabetes medication which includes insulin, she was discharged from care home yesterday and has no meds at home except for Humalog, states she took 30 units approximately 2 hours ago, she has been having nausea and vomiting, increased acid production with epigastric abdominal pain and chest pressure, she reports left-sided ear pain with decreased hearing, history of DKA with similar symptoms previously - Related Data Allergies/Adverse Reactions: amoxicillin [Amoxicillin] Allergy (Verified 09/06/16 17:33) Penicillins Allergy (Verified 04/15/17 14:18) Past Medical History - Past Medical History Cardiac Medical History: Reports: Hx Hypertension Denies: Hx Congestive Heart Failure, Hx DVT, Hx Heart Attack, Hx Pulmonary Embolism Pulmonary Medical History: Reports: Hx Asthma, Hx Bronchitis Neurological Medical History: Reports: Hx Migraine. Denies: Hx Seizures Endocrine Medical History: Reports: Hx Diabetes Mellitus Type 1, Hx Diabetes Mellitus Type 2. Denies: Hx Hyperthyroidism, Hx Hypothyroidism Renal/ Medical History: Denies: Hx Peritoneal Dialysis GI Medical History: Denies: Hx Cirrhosis, Hx Gastroesophageal Reflux Disease, Hx Hepatitis Musculoskeltal Medical History: Denies Hx Arthritis Psychiatric Medical History: Reports: Hx Bipolar Disorder, Hx Depression Infectious Medical History: Denies: Hx Hepatitis Past Surgical History: Reports: Hx Cholecystectomy, Hx Oral Surgery, Hx Tonsillectomy - Immunizations Immunizations up to date: Yes Hx Diphtheria, Pertussis, Tetanus Vaccination: Yes Physical Exam - Vital signs Vitals: Temp Pulse Resp BP Pulse Ox 98.6 F 110 H 20 146/93 H 98 04/15/17 14:18 04/15/17 14:18 04/15/17 14:18 04/15/17 14:18 04/15/17 14:18 Course - Vital Signs Vital signs: Temp Pulse Resp BP Pulse Ox 98.6 F 110 H 20 146/93 H 98 04/15/17 14:18 04/15/17 14:18 04/15/17 14:18 04/15/17 14:18 04/15/17 14:18
[2017-04-15] MEDS: NORMAL SALINE 1000 ML 1,000 ML IV PRN ×2 (15:51→18:04)
[2017-04-15 15:56] LABS: VENOUS BLOOD BASE EXCESS -2.3 mmol/L; VENOUS BLOOD HCO3 21.6 mmol/L (20-32); VENOUS BLOOD PCO2 35.3 mmHg (35-63); VENOUS BLOOD PH 7.41 (7.30-7.42)
[2017-04-15 15:57] LABS: ABSOLUTE BASOPHILS # (AUTO) 0.1 10^3/uL (0.0-0.2); ABSOLUTE MONOCYTES (AUTO) 1.1 10^3/uL (0.1-1.4); ABSOLUTE NEUT (AUTO) 15.4 10^3/uL (1.7-8.2); BASOPHILS % (AUTO) 0.4 % (0-2); EOSINOPHILS % (AUTO) 0.1 % (0-6); HEMATOCRIT 47.8 % (36.0-47.0); HEMOGLOBIN 15.4 g/dL (12.0-15.5); HGB HCT DIFFERENCE -1.6; LYMPHOCYTES % (AUTO) 10.5 % (13-45); MEAN CORPUSCULAR HEMOGLOBIN 28.6 pg (27.0-33.4); MEAN CORPUSCULAR HGB CONC 32.2 g/dL (32.0-36.0); MEAN CORPUSCULAR VOLUME 89 fl (80-97); MONOCYTES % (AUTO) 6.1 % (3-13); RED BLOOD COUNT 5.38 10^6/uL (3.72-5.28); RED CELL DISTRIBUTION WIDTH 14.1 % (11.5-14.0); SEGMENTED NEUTROPHILS % (AUTO) 82.9 % (42-78); WHITE BLOOD COUNT 18.5 10^3/uL (4.0-10.5)
[2017-04-15 16:05] LABS: APPEARANCE,URINE SLIGHTLY-CLOUDY; BILIRUBIN,URINE NEGATIVE (NEGATIVE); GLUCOSE, URINE >=500 mg/dL (NEGATIVE); KETONES,URINE 80 mg/dL (NEGATIVE); LEUKOCYTE ESTERASE,URINE TRACE (NEGATIVE); NITRITE,URINE NEGATIVE (NEGATIVE); PROTEIN,URINE 100 mg/dL (NEGATIVE); URINE SPECIFIC GRAVITY 1.028; UROBILINOGEN,URINE NEGATIVE mg/dL (<2.0)
[2017-04-15 16:25] LABS: ALANINE AMINOTRANSFERASE 38 U/L (9-52); ALBUMIN 4.8 g/dL (3.5-5.0); ALKALINE PHOSPHATASE 122 U/L (38-126); ANION GAP 16 (5-19); ASPARTATE AMINO TRANSFERASE 21 U/L (14-36); BILIRUBIN,DIRECT 0.3 mg/dL (0.0-0.4); BLOOD UREA NITROGEN 13 mg/dL (7-20); CALCIUM 9.7 mg/dL (8.4-10.2); CARBON DIOXIDE 20 mmol/L (22-30); CHLORIDE 102 mmol/L (98-107); CREATININE RESULT 0.67 mg/dL (0.52-1.25); GLUCOSE 197 mg/dL (75-110); POTASSIUM 4.4 mmol/L (3.6-5.0); SODIUM 137.9 mmol/L (137-145); TOTAL PROTEIN 8.2 g/dL (6.3-8.2)
--- NOTE | 2017-04-15 18:57 | RADIOLOGY REPORT (SQ) ---
EXAM DESCRIPTION: CHEST SINGLE VIEW COMPLETED DATE/TIME: 04/15/2017 6:44 pm REASON FOR STUDY: sob, cp COMPARISON: None. EXAM PARAMETERS: NUMBER OF VIEWS: One view. TECHNIQUE: Single frontal radiographic view of the chest acquired. RADIATION DOSE: NA LIMITATIONS: None. FINDINGS: LUNGS AND PLEURA: No opacities, masses or pneumothorax. No pleural effusion. MEDIASTINUM AND HILAR STRUCTURES: No masses. Contour normal. HEART AND VASCULAR STRUCTURES: Heart normal in size. Normal vasculature. BONES: No acute findings. HARDWARE: None in the chest. OTHER: No other significant finding. IMPRESSION: NO ACUTE RADIOGRAPHIC FINDING IN THE CHEST. TECHNICAL DOCUMENTATION: JOB ID: [id number]
[2017-04-15] MEDS ORDERED: LIDOCAINE 2% VISCOUS SOLN 20 ML UDCUP PO ONE (18:58)
[2017-04-15] MEDS ORDERED: METOCLOPRAMIDE HCL ORAL SOLN 10 MG/10 ML UDCUP PO ONE (18:58)
[2017-04-15] MEDS ORDERED: MAG HYDROX/AL HYDROX/SIMETH SUSP 30 ML UDCUP PO ONE (18:58)
[2017-04-15] MEDS ORDERED: AZITHROMYCIN 250 MG TABLET PO ONE (18:58)
--- NOTE | 2017-04-15 19:02 | ER Document Report ---
ED General - General Chief Complaint: High Blood Sugar Stated Complaint: VOMITING,DIZZY,SHORTNESS OF BREATH Time Seen by Provider: 04/15/17 14:45 Mode of Arrival: Ambulatory Notes: Patient is a 27-year-old female with past medical history of insulin-dependent type 2 diabetes, hypertension, hyperlipidemia, morbid obesity with a BMI of 40, depression, just released [facility] after being incarcerated for 30 days for a DUI who presents with concerns of not having her insulin and possibly being a diabetic ketoacidosis. Patient states that she has felt nauseated, somewhat lethargic, similar to prior episodes of diabetic ketoacidosis. States that she does not have any insulin at home but used her last amount of Humalog earlier today to try to get her blood sugars down. She is not able to see her primary care doctor for the next several weeks. She has not noted anything seems to improve or worsen her symptoms. States they have been worsening since onset. Denies any headache, neck pain or altered mental status. Does complain of left ear pain. TRAVEL OUTSIDE OF THE [place] IN LAST 30 DAYS: No - Related Data Allergies/Adverse Reactions: amoxicillin [Amoxicillin] Allergy (Verified 09/06/16 17:33) Penicillins Allergy (Verified 04/15/17 14:18) Past Medical History - General Information source: Patient - Social History Smoking Status: Never Smoker Frequency of alcohol use: None Drug Abuse: None Lives with: Alone Family History: DM Patient has suicidal ideation: No Patient has homicidal ideation: No - Past Medical History Cardiac Medical History: Reports: Hx Hypertension Denies: Hx Congestive Heart Failure, Hx DVT, Hx Heart Attack, Hx Pulmonary Embolism Pulmonary Medical History: Reports: Hx Asthma, Hx Bronchitis Neurological Medical History: Reports: Hx Migraine. Denies: Hx Seizures Endocrine Medical History: Reports: Hx Diabetes Mellitus Type 1, Hx Diabetes Mellitus Type 2. Denies: Hx Hyperthyroidism, Hx Hypothyroidism Renal/ Medical History: Denies: Hx Peritoneal Dialysis GI Medical History: Denies: Hx Cirrhosis, Hx Gastroesophageal Reflux Disease, Hx Hepatitis Musculoskeltal Medical History: Denies Hx Arthritis Psychiatric Medical History: Reports: Hx Bipolar Disorder, Hx Depression Infectious Medical History: Denies: Hx Hepatitis Past Surgical History: Reports: Hx Cholecystectomy, Hx Oral Surgery, Hx Tonsillectomy - Immunizations Immunizations up to date: Yes Hx Diphtheria, Pertussis, Tetanus Vaccination: Yes Review of Systems - Review of Systems Notes: Constitutional: Negative for fever. HENT: Positive for left ear pain Eyes: Negative for visual changes. Cardiovascular: Negative for chest pain. Respiratory: Positive for shortness of breath. Gastrointestinal: Negative for abdominal pain, positive for nausea Genitourinary: Negative for dysuria. Musculoskeletal: Negative for back pain. Skin: Negative for rash. Neurological: Negative for headaches, weakness or numbness. 10 point ROS negative except as marked above and in HPI. Physical Exam - Vital signs Vitals: Temp Pulse Resp BP Pulse Ox 98.6 F 110 H 20 146/93 H 98 04/15/17 14:18 04/15/17 14:18 04/15/17 14:18 04/15/17 14:18 04/15/17 14:18 Interpretation: Tachycardic Notes: PHYSICAL EXAMINATION: GENERAL: Well-appearing, well-nourished and in no acute distress. HEAD: Atraumatic, normocephalic. EYES: Pupils equal round and reactive to light, extraocular movements intact, sclera anicteric, conjunctiva are normal. ENT: nares patent, oropharynx clear without exudates. Left TM with purulent effusion and purulent expression in the external ear canal NECK: Normal range of motion, supple without lymphadenopathy LUNGS: Breath sounds clear to auscultation bilaterally and equal. No wheezes rales or rhonchi. HEART: Regular rate and rhythm without murmurs ABDOMEN: Soft, nontender, normoactive bowel sounds. No guarding, no rebound. No masses appreciated. EXTREMITIES: Normal range of motion, no pitting or edema. No cyanosis. NEUROLOGICAL: No focal neurological deficits. Moves all extremities spontaneously and on command. PSYCH: Normal mood, normal affect. SKIN: Warm, Dry, normal turgor, no rashes or lesions noted. Course - Re-evaluation Re-evalutation: 04/15/17 18:57 Presentation of asymptomatic hyperglycemia. There is no evidence of HHS or diabetic ketoacidosis on laboratories or based on clinical history. Patient's vitals are within normal limits at time of assessment. Patient does have a left otitis media and will be started on azithromycin due to her penicillin allergy. Patient is also complaining of epigastric abdominal discomfort with reflux symptoms into her chest. Most consistent with likely gastritis. Patient has no focal abdominal tenderness on examination. History is not consistent with acute biliary pathology. Lipase is normal. No LFT changes. Based on history and exam, I do not suspect ACS, pulmonary embolus, SBO, mesenteric ischemia, acute pancreatitis, biliary pathology, or an abdominal aortic dissection. Patient has had improvement of symptoms here with a GI cocktail. Will refill patient chronic insulin medications to prevent her from having recurrent hyperglycemia, will start on famotidine as well as azithromycin. At this time will discharge with return precautions and follow- up recommendations. Verbal discharge instructions given a the bedside and opportunity for questions given. Medication warnings reviewed. Patient is in agreement with this plan and has verbalized understanding of return precautions and the need for primary care follow-up in the next 24-72 hours. - Vital Signs Vital signs: Temp Pulse Resp BP Pulse Ox 98.6 F 110 H 15 111/69 99 04/15/17 14:18 04/15/17 14:18 04/15/17 19:01 04/15/17 19:00 04/15/17 19:01 - Laboratory Result Diagrams: 04/15/17 15:40 04/15/17 15:40 Laboratory results interpreted by me: 04/15/17 04/15/17 04/15/17 15:40 15:40 15:40 WBC 18.5 H RBC 5.38 H Hct 47.8 H RDW 14.1 H Seg Neutrophils % 82.9 H Lymphocytes % 10.5 L Absolute Neutrophils 15.4 H Carbon Dioxide 20 L Glucose 197 H Urine Protein 100 H Urine Glucose (UA) >=500 H Urine Ketones 80 H Ur Leukocyte Esterase TRACE H - Diagnostic Test Radiology reviewed: Image reviewed, Reports reviewed Radiology results interpreted by me: 04/15/17 19:06 Chest x-ray: No acute infiltrate or pneumothorax Discharge - Discharge Clinical Impression: Hyperglycemia, Epigastric abdominal pain, Medication refill Left otitis media Qualifiers: Otitis media type: suppurative Chronicity: acute Recurrence: not specified as recurrent Spontaneous tympanic membrane rupture: without spontaneous rupture Qualified Code(s): H66.002 - Acute suppurative otitis media without spontaneous rupture of ear drum, left ear Condition: Good Disposition: HOME, SELF-CARE Additional Instructions: You need to followup urgently with your primary care doctor as your blood sugars were dangerously high today. You did not have any evidence of a dangerous condition associated with these blood sugars at this time. However, it is very important that you get your blood sugars under control. Please take all of your medications exactly as directed. You should avoid foods that are high in carbohydrates and sugary foods. Losing weight will also help to better control your blood sugars. Your being started on antibiotic to help control your ear infection. Your abdominal symptoms appear to be most consistent with stomach or upper intestinal irritation. Please begin taking famotidine 40 mg in the morning and 40 mg at night. This medicine can be purchased directly over -the-counter. You may also take medicine such as Pepto-Bismol or Tums to assist with your pain. Please return to emergency department immediately if you have worsening of your pain, shortness of breath, vomiting, become unable to exert yourself due to pain or difficulty breathing, you pass out, or have any pain that radiates into your arms, jaw, or back. Please also return to emergency department immediately if you develop weakness, persistent vomiting, confusion, or any other symptoms that are concerning to you. Prescriptions: Azithromycin 250 mg PO DAILY #4 tablet Gabapentin 300 mg PO BID #60 capsule Insulin Glargine,Hum.rec.anlog [Lantus Solostar] 50 unit SQ BID #1 syr Levothyroxine Sodium [Synthroid 0.05 mg Tablet] 0.05 mg PO DAILY #30 tablet Lisinopril 10 mg PO DAILY #30 tablet
[2017-04-15 19:40] VITALS: BP 111/69
== END 2017-04-15 19:43 | disposition home or self-care (01) ==
LOC: ER 13:55
DX: E11.65 Type 2 diabetes mellitus with hyperglycemia (principal); H66.002 Acute suppurative otitis media without spontaneous rupture of ear drum, left ear; R10.13 Epigastric pain; Z79.4 Long term (current) use of insulin; I10 Essential (primary) hypertension; E78.5 Hyperlipidemia, unspecified; E66.01 Morbid (severe) obesity due to excess calories; Z68.41 Body mass index [BMI] 40.0-44.9, adult; Z88.0 Allergy status to penicillin; Z90.49 Acquired absence of other specified parts of digestive tract
CPT/HCPCS: 99284; 96361; 96374; 96375; 36415; 87086; 82962; 85025; 80053; 81001; 82803; 71010; J3490; J2405; J7030; S0028